=== PATIENT | male | born 1940 | race Caucasian/White ===

== ENCOUNTER → 2017-06-05 14:04 | Outpatient (CLI) | payer MEDICARE ==
[2017-06-05 14:34] LABS: BASOPHILS 0.3 % (0-2); EOSINOPHILS 2.8 % (0-7); HEMOGLOBIN 13.8 g/dL (13.5-17.5); IMMATURE GRANULOCYTES 2.5 % (0-5); MCH 31.2 pg (26.0-34.0); MCHC 34.5 g/dL (31.0-37.0); MCV 90.5 fL (80.0-100.0); MEAN PLATELET VOLUME 10.1 fL (7.4-10.4); MONOCYTES 11.3 % (2-11); NEUTROPHILS 65.1 % (40-80); PLATELET COUNT 204 10x3/uL (130-400); RBC 4.42 10x6/uL (4.20-6.10); RDW 12.6 % (11.5-14.5); WBC 7.5 10x3/uL (4.8-10.8)
== END | disposition home or self-care (01) ==
LOC: D.LABREF 14:04
PROVIDERS: Emergency Medicine
DX: J18.9 Pneumonia, unspecified organism (principal)